=== PATIENT | male | born 1985 | race African-American/Black ===

== ENCOUNTER 2023-11-17 16:50 | Inpatient (IN) | payer OTHER ==
[2023-11-17 17:51] VITALS: BMI 24.7
[2023-11-17] MEDS ORDERED: BENZOCAINE/MENTHOL (CHLORASEPTIC ) LOZENGE MM PRN (21:10)
[2023-11-17] MEDS ORDERED: P-EPHED 60MG/TRIPROLIDI 2.5MG TABLET PO PRN (21:10)
[2023-11-17] MEDS ORDERED: guaiFENesin 600 MG TABLET.ER (FP) PO PRN (21:10)
[2023-11-17] MEDS ORDERED: LOPERAMIDE HCL 2 MG CAPSULE PO PRN (21:10)
[2023-11-17] MEDS ORDERED: ACETAMINOPHEN 325 MG TABLET (FP) PO PRN (21:10)
[2023-11-17] MEDS ORDERED: BENZONATATE 200 MG CAPSULE PO PRN (21:10)
[2023-11-17] MEDS ORDERED: IBUPROFEN 400 MG TABLET (FP) PO ONE (23:50)
[2023-11-17] MEDS: IBUPROFEN 400 MG TABLET (FP) PO PRN (23:53)
[2023-11-18] MEDS: MELATONIN 5 MG TABLETS PO SCH (02:22)
[2023-11-18] MEDS: THIAMINE HCL 100 MG TABLET (FP) PO SCH (02:23)
[2023-11-18] MEDS ORDERED: TUBERCULIN PPD 5 TU/0.1ML VIAL ID ONE (06:09)
[2023-11-18] MEDS: TUBERCULIN PPD 5 TU/0.1ML SYRINGE (IN PATIENT USE ONLY) ID ONE (06:53)
[2023-11-18] MEDS ORDERED: ALBUTEROL SO4 HFA INHALER IH PRN (08:34)
[2023-11-18] MEDS: PRENATAL VITAMINS W/ FOLIC ACID TABLET (FP) PO SCH (09:49)
[2023-11-18] MEDS: ARIPiprazole 5 MG TABLET PO SCH (09:49)
[2023-11-18 10:58] LABS: HEMATOCRIT 43.5 % (35.4-49); HEMOGLOBIN 14.4 GM/dL (11.7-16.9); MCH 29.6 pg (25.7-33.7); MCHC 33.1 g/dl (32.0-35.9); MEAN CELL VOLUME 89.4 fl (80-96); MEAN PLT VOLUME 7.9 fl (7.5-11.1); PLATELET COUNT 340 10^3/uL (134-434); RBC 4.86 M/mm3 (4.00-5.60); RDW 14.2 % (11.9-15.9); WHITE BLOOD COUNT 4.8 K/mm3 (4.0-10.0)
[2023-11-18 11:00] LABS: CHLORIDE 104 mmol/L (98-107); POTASSIUM 4.3 mmol/L (3.5-5.1); SODIUM 139 mmol/L (136-145)
[2023-11-18 11:07] LABS: ALBUMIN 3.4 g/dl (3.4-5.0); ANION GAP 6 mmol/L (4-13); BLOOD UREA NITROGEN 6.5 mg/dL (7-18); CO2 29 mmol/L (21-32); GLUCOSE,RANDOM 139 mg/dL (74-106)
[2023-11-18 11:10] LABS: BILIRUBIN,TOTAL 0.4 mg/dL (0.2-1); CREATININE 1.2 mg/dL (0.55-1.3); SGOT/AST 16 U/L (15-37); SGPT/ALT 24 U/L (13-61); TOT PROT 6.8 g/dl (6.4-8.2)
[2023-11-18 11:11] LABS: ALK PHOS 107 U/L (45-117)
[2023-11-18 11:31] LABS: SYPHILIS W/ RPR CONF NON-REACTIVE (NONREACTIVE)
[2023-11-18] MEDS: MAG HYDROX/AL HYDROX/SIMETH 30 ML UNIT-DOSE CUP PO PRN (11:35)
[2023-11-19 10:52] LABS: PH,URINE 7.5 (5.0-8.0); URINE APPEARANCE CLEAR; URINE BILIRUBIN NEGATIVE (NEGATIVE); URINE COLOR YELLOW; URINE GLUCOSE (UA) NEGATIVE (NEGATIVE); URINE KETONE NEGATIVE (NEGATIVE); URINE LEUK ESTERASE NEGATIVE (NEGATIVE); URINE NITRITE NEGATIVE (NEGATIVE); URINE PROTEIN NEGATIVE (NEGATIVE); URINE UROBILINOGEN 0.2 mg/dL (0.2-1.0)
[2023-11-19] MEDS: IBUPROFEN 600 MG TABLET (FP) PO PRN (21:24)
[2023-11-19] MEDS ORDERED: ASPIRIN COATED 81 MG TABLET.EC ONE (22:48)
[2023-11-19] MEDS: ASPIRIN 81 MG CHEWABLE TABLETS PO ONE (23:24)
[2023-11-22] MEDS: MAGNESIUM HYDROX 2400MG/30ML ORAL SUSPENSION 30 ML CUP PO PRN (10:36)
[2023-11-22] MEDS: TOLNAFTATE 1% CREAM 15 GM TUBE TP SCH (21:18)
[2023-11-23 11:57] LABS: HIV INTERPRETATION NEGATIVE (NEGATIVE)
[2023-11-24] MEDS: MELATONIN 5 MG TABLETS PO SCH (21:35)
[2023-11-25] MEDS: ARIPiprazole 10 MG TABLET PO SCH (11:20)
[2023-11-27] MEDS: POLYETHYLENE GLYCOL (HEALTHYLAX) 3350 17 GM PACKET PO PRN (10:21)
[2023-11-27] MEDS: PANTOPRAZOLE 20 MG TABLET PO PRN (10:21)
[2023-11-27] MEDS: hydrOXYzine PAMOATE 25 MG CAPSULE (FP) PO PRN (14:24)
[2023-11-30] MEDS: ARIPiprazole 10 MG TABLET PO ONE (11:40)
[2023-11-30] MEDS: MIRTAZAPINE 15 MG TABLET (FP) PO SCH (21:34)
[2023-12-01] MEDS: ARIPiprazole 10 MG TABLET PO SCH (09:50)
[2023-12-04] MEDS: SIMETHICONE 80 MG TAB.CHEW (FP) PO PRN (21:36)
[2023-12-06 08:50] VITALS: RESP 18
[2023-12-07 06:38] VITALS: BP 120/84; PULSE 105; TEMP 98.3
== END 2023-12-07 09:22 | disposition home or self-care (01) | DRG 772 ==
LOC: YASAS 16:50 → Y3NR 11-18 02:27 → Y3E 11-18 02:38
PROVIDERS: ADMIT Allergy & Immunology; ATTEND Psychiatry & Neurology Pain Medicine
PROC: HZ42ZZZ Group Counseling for Substance Abuse Treatment, Cognitive-Behavioral (ICD-10-PCS; principal; 2023-11-18)
DX: F14.20 Cocaine dependence, uncomplicated (principal); F16.20 Hallucinogen dependence, uncomplicated; F18.20 Inhalant dependence, uncomplicated; F12.20 Cannabis dependence, uncomplicated; F17.290 Nicotine dependence, other tobacco product, uncomplicated; F20.9 Schizophrenia, unspecified; F19.282 Other psychoactive substance dependence with psychoactive substance-induced sleep disorder; F19.24 Other psychoactive substance dependence with psychoactive substance-induced mood disorder; F41.9 Anxiety disorder, unspecified; G47.00 Insomnia, unspecified; J45.909 Unspecified asthma, uncomplicated; K21.9 Gastro-esophageal reflux disease without esophagitis; B35.1 Tinea unguium; R07.9 Chest pain, unspecified; Z59.01 Sheltered homelessness; Z56.0 Unemployment, unspecified
CPT/HCPCS: 36415; 80053; 80307; 81003; 82962; 85027; 86780; 86803; 87389; 87491; 87591; 87635; 87661; 93005; 93010

== ENCOUNTER 2023-11-20 00:18 | Emergency (ER) | payer OTHER ==
[2023-11-20 00:27] VITALS: BP 150/92; PULSE 101; RESP 20; TEMP 98.3; BMI 27.3
[2023-11-20] MEDS ORDERED: LORazepam 0.5 MG TABLET ONE (01:30)
[2023-11-20] MEDS: LORazepam 2 MG TABLET PO ONE (01:33)
[2023-11-20 01:43] LABS: BASO % 0.8 % (0-2.0); EOS % 1.7 % (0-4.5); HEMATOCRIT 43.2 % (35.4-49); HEMOGLOBIN 14.7 GM/dL (11.7-16.9); LYMPH % 40.5 % (8-40); MCH 29.7 pg (25.7-33.7); MEAN CELL VOLUME 87.4 fl (80-96); MEAN PLT VOLUME 7.3 fl (7.5-11.1); MONO % 6.9 % (3.8-10.2); NEUT % 50.1 % (42.8-82.8); PLATELET COUNT 318 10^3/uL (134-434); RBC 4.95 M/mm3 (4.00-5.60); RDW 14.8 % (11.9-15.9); WHITE BLOOD COUNT 5.6 K/mm3 (4.0-10.0)
[2023-11-20 01:55] LABS: POTASSIUM 4.2 mmol/L (3.5-5.1)
[2023-11-20 01:57] LABS: CALCIUM 9.1 mg/dL (8.5-10.1)
[2023-11-20 01:58] LABS: ALBUMIN 3.3 g/dl (3.4-5.0); BLOOD UREA NITROGEN 8.6 mg/dL (7-18)
[2023-11-20 02:03] LABS: BILIRUBIN,TOTAL 0.3 mg/dL (0.2-1); TOT PROT 6.7 g/dl (6.4-8.2)
== END 2023-11-20 03:44 | disposition short-term general hospital (02) ==
LOC: JER 00:18
DX: R07.9 Chest pain, unspecified (principal); F14.90 Cocaine use, unspecified, uncomplicated
CPT/HCPCS: 36415; 80053; 84484; 85025; 99283-25